=== PATIENT | female | born 1960 | race Caucasian/White ===

== ENCOUNTER 2019-10-07 13:57 | Emergency (ER) | payer OTHER ==
[~2019-10-07] VITALS: Ht 162.6 cm; Wt 60.0 kg
[2019-10-07 16:00] VITALS: BP 126/74
[2019-10-07] MEDS ORDERED: IBUPROFEN 600MG TABLET PO ONE (16:00)
== END 2019-10-07 16:01 | disposition home or self-care (01) ==
LOC: ER 13:57
DX: R05 Cough (principal); Z90.710 Acquired absence of both cervix and uterus
CPT/HCPCS: 99283

== ENCOUNTER 2022-12-14 23:16 | Emergency (ER) | payer OTHER ==
[~2022-12-14] VITALS: Ht 149.9 cm; Wt 46.0 kg
[2022-12-14] MEDS ORDERED: ACETAMINOPHEN 325MG TABLET PO STA (23:45)
[2022-12-14 23:51] LABS: BASOPHILS % 0.6 % (0.0-2.0); EOSINOPHILS % 2.6 % (0.0-5.0); HEMATOCRIT. 39.5 % (36.0-48.0); HEMOGLOBIN. 13.2 g/dL (12.0-16.0); LYMPHOCYTES % 22.5 % (20.0-50.0); MEAN CORPUSCULAR HEMOGLOBIN 29.7 pg (28.0-32.0); MEAN CORPUSCULAR VOLUME 88.8 fL (81.0-99.0); MEAN PLATELET VOLUME 7.6 fl (7.4-10.4); MONOCYTES % 10.9 % (2.0-8.0); NEUTROPHILS % 63.4 % (40.0-76.0); PLATELET 284 x1000/uL (130-400); RED BLOOD CELL COUNT 4.45 mill/uL (4.2-5.4); RED CELL DISTRIBUTION WIDTH 13.4 % (11.6-14.6)
[2022-12-14 23:52] VITALS: BP 116/68
[2022-12-14 23:57] LABS: CHLORIDE 108 mEq/L (98-107)
[2022-12-15] MEDS ORDERED: IBUP-2028 MT (03:18)
[2022-12-15 03:57] LABS: CLARITY URINE CLEAR (CLEAR); COLOR URINE YELLOW (YELLOW); KETONES URINE NEGATIVE (NEGATIVE); LEUKOCYTE ESTERASE URINE NEGATIVE (NEGATIVE); NITRITE URINE NEGATIVE (NEGATIVE); OCCULT BLOOD URINE 1+ (NEGATIVE); PH URINE 5.5 (4.5-8.0); PROTEIN URINE NEGATIVE (NEGATIVE); SPECIFIC GRAVITY URINE 1.017 (1.005-1.030); UROBILINOGEN URINE 0.2 E.U./dL (0.2-1.0)
== END 2022-12-15 03:45 | disposition home or self-care (01) ==
LOC: ER 23:16
DX: K76.9 Liver disease, unspecified (principal); R10.11 Right upper quadrant pain; Z90.710 Acquired absence of both cervix and uterus
CPT/HCPCS: 36415; 71045; 76700; 80053; 81003; 85025; 99284